=== PATIENT | female | born 1955 | race Hispanic/Latino ===

== ENCOUNTER → 2022-12-21 | Outpatient (CLI) | payer MEDICARE | END | disposition home or self-care (01) | LOC: RAH 12:42 | PROVIDERS: ATTEND Family Medicine | DX: Z12.31 Encounter for screening mammogram for malignant neoplasm of breast (principal) | CPT/HCPCS: 77067 ==

== ENCOUNTER → 2024-04-04 | Outpatient (CLI) | payer MEDICARE ==
--- NOTE | 2024-04-05 14:24 | HMCIMG ---
US VENOUS DOPPLER UNILATERAL HISTORY: Right leg pain COMPARISON: None TECHNIQUE: Right lower extremity venous Doppler ultrasound study was performed. FINDINGS: The common right femoral, femoral, popliteal, and posterior tibial veins are visualized. Normal flow with augmentation and compressibilities are demonstrated. Right greater saphenous vein is patent. Complex area is seen in the medial aspect of the right ankle measuring 5.2 x 1.9 x 3.2 cm with possible pseudoaneurysm measuring 8 x 4 mm with neck measuring 2 mm. This appears to be arising from the peroneal artery. IMPRESSION: 1. No evidence of deep venous thrombosis is seen. Complex area is seen in the medial aspect of the right ankle measuring 5.2 x 1.9 x 3.2 cm with possible pseudoaneurysm measuring 8 x 4 mm with neck measuring 2 mm. This appears to be arising from the peroneal artery.
== END | disposition home or self-care (01) ==
LOC: RAH 07:49
PROVIDERS: ATTEND Family Medicine
DX: M79.89 Other specified soft tissue disorders (principal); M79.604 Pain in right leg
CPT/HCPCS: 93971